=== PATIENT | male | born 1990 | race Caucasian/White ===

== ENCOUNTER 2017-12-17 12:47 | Inpatient (IN) ==
[2017-12-17 13:12] LABS: Basophils % 0.2 % (0.1-2.0); Eosinophils # 0.1 K/mm3 (0.0-0.4); Eosinophils % 0.5 % (0.1-12.0); Hematocrit 45.6 % (42.0-52.0); Hemoglobin 15.4 g/dL (14.1-18.0); Lymphocytes # 1.7 K/mm3 (0.7-4.5); Lymphocytes % 10.7 K/mm3 (10-50); Mean Corpuscular HGB Conc 33.7 g/dL (31.8-35.4); Mean Platelet Volume 7.8 fl (7.4-10.4); Monocytes # 0.7 K/mm3 (0.1-1.0); Neutrophils # 13.6 K/mm3 (1.8-7.8); Neutrophils % 84.6 % (37.0-80.0); Platelet Count 307 K/mm3 (142-424); Red Blood Count 4.96 M/mm3 (4.60-6.20); Red Cell Distribution Width 12.7 % (11.5-17.5)
--- NOTE | 2017-12-17 13:22 | Emergency Department Note ---
ED Disposition Clinical Impression: Acute pancreatitis, Lung nodule < 6cm on CT, Leucocytosis Disposition: Still a Patient Condition on Discharge: Fair Instructions: DI for Acute Abdomen - Critical Care Critical Care Time: No Attestation: On , the high probability of a clinically significant, sudden or life threatening deterioration of the following system(s) required my full and direct attention, intervention and personal management. The time I documented below is in addition to time spent performing reported procedures but includes the following listed in this critical care notation. Medical Decision Making - Eric Inquiry Pt receiving controlled substance: No Eric was queried for this patient: No Vital Signs: 12/17/17 12:52 Temperature 98.1 F Temperature Source Oral Respiratory Rate 22 Blood Pressure [Right Arm] 128/100 Blood Pressure Mean [Right Arm] 109 Blood Pressure Source [Right Arm] Automatic Cuff 02 Sat by Pulse Oximetry 98 Oxygen Delivery Method Room Air - Lab Data Lab Results 12/17/17 12:58: WBC 16.0 H, RBC 4.96, Hgb 15.4, Hct 45.6, MCV 92.0, MCH 31.0, MCHC 33.7, RDW 12.7, Plt Count 307, MPV 7.8, Neut % (Auto) 84.6 H, Lymph % (Auto ) 10.7, [place] % (Auto) 4.0, Eos % (Auto) 0.5, Baso % (Auto) 0.2, Neut # (Auto) 13.6 H, Lymph # (Auto) 1.7, [place] # (Auto) 0.7, Eos # (Auto) 0.1, Baso # (Auto) 0.0, Total Counted 100, Neutrophils % (Manual) 82 H, Band Neutrophils % 1.0, Lymphocytes % (Manual) 14, Monocytes % (Manual) 3, Platelet Estimate Normal, RBC Morphology Normal 12/17/17 12:58: Sodium 141, Potassium 4.1, Chloride 102, Carbon Dioxide 29, Anion Gap 14.1, BUN 19 H, Creatinine 1.16, Estimated Creat Clear 127, Estimated GFR 74, Est GFR ( Amer) 90, Glucose 107 H, Calcium 9.7, Total Bilirubin 0.9, AST 27, ALT 49, Alkaline Phosphatase 80, Total Creatine Kinase 191, CK-MB ( CK-2) 1.7, CK-MB (CK-2) Rel Index 0.9, Troponin I < 0.02, Total Protein 8.4 H, Albumin 4.8, Globulin 3.6 H, Albumin/Globulin Ratio 1.3, Amylase 417 H*, Lipase 4673 H 12/17/17 12:58: Plasma/Serum Alcohol 4 12/17/17 13:30: Lactic Acid 1.4 Result diagrams: 12/17/17 12:58 12/17/17 12:58 Orders (Tests/Meds): ED MEDICATIONS Generic Name Dose Route Start Last Admin Trade Name August PRN Reason Stop Dose Admin Metronidazole 100 mls @ 100 mls/hr 12/17/17 14:15 12/17/17 14:14 Flagyl 500mg/100ml Ivpb IV 12/31/17 14:14 100 mls/hr Q8H RONEY Administration Protocol Levofloxacin/Dextrose 750 mg in 150 mls @ 100 mls/hr 12/17/17 14:15 12/17/17 15:20 Levofloxacin 750mg/150ml Premix IV 12/31/17 14:14 100 mls/hr Q24H RONEY Administration Protocol Morphine Sulfate 2 mg 12/17/17 13:16 12/17/17 13:23 Morphine 2mg/Ml Syringe IV 01/16/18 13:15 2 mg [id number] PRN Administration Severe Pain Discontinued Medications Generic Name Dose Route Start Last Admin Trade Name August PRN Reason Stop Dose Admin Sodium Chloride 500 mls @ 999 mls/hr 12/17/17 13:30 12/17/17 13:23 Sod Chlor 0.9% 1000ml Bag IV 12/17/17 14:00 999 mls/hr .Q31M RONEY Administration Sodium Chloride 1,000 mls @ 999 mls/hr 12/17/17 13:30 12/17/17 15:27 Sod Chlor 0.9% 1000ml Bag IV 12/17/17 14:30 999 mls/hr .Q1H1M RONEY Administration Iopamidol 75 ml 12/17/17 13:55 12/17/17 13:56 [id number]; 75ml Vial IV 12/17/17 13:56 75 ml ONCE ONE Administration Ondansetron HCl 4 mg 12/17/17 13:02 12/17/17 13:03 Zofran 4mg/2ml Vial IV 12/17/17 13:03 4 mg ONCE ONE Administration Sodium Chloride 10 ml 12/17/17 13:55 12/17/17 13:56 Rad-Saline Flush 10ml Syringe IV 12/17/17 13:56 10 ml ONCE ONE Administration ORDERS Category Date Time Status Drug Screen,Urine Stat Lab 12/17/17 15:17 Received Blood Culture Stat Micro 12/17/17 13:30 Received - Radiology Data #1 Image(s): Chest Preliminary Findings: Normal/NAD - CT Data CT Scan: Abdomen, Pelvis Time Received: 15:02 Preliminary Findings: Abnormal Findings Narrative: see report - ECG Data Tracing #1 Normal sinus rhythm 100/min baseline artifact no acute findings. ECG initial impression date: 12/17/17 ECG initial impression time: 13:23 Medical Decision Narrative: The patient required 4 mg of morphine IV for pain control. I called Dr. Jovel the signal operator who advised the patient to be admitted for bowel rest and IV fluids. I spoke with Dr. Diaz was cable television technician for unassigned patients agreed to admit the patient for symptomatic treatment and ultrasound. Abdominal Pain HPI - General Chief Complaint: Abdominal Pain Stated Complaint: abd pain Time Seen by Provider: 12/17/17 13:00 Mode of Arrival: Ambulatory Limitations: No Limitations Description of Symptoms (Recalled from ER Triage Doc. by RN): ONSET OF MID EPIGASTRIC ABD PAIN; RADIATES TO BACK - History of Present Illness HPI narrative: 27 years old white male with no past medical history woke up this morning at 830 with indigestion later on developed pain that progressively gotten worse at 1030 and started vomiting. He started vomiting food later on it became frothy white material x 8 followed by one loose bowel movement. The pain is sharp epigastric radiating to his back severe in character. He denies having hematemesis coffee-ground emesis bleeding per rectum or melanotic stool. He denies having chest pain palpitations shortness of breath. He does not recall any other family members or coworkers with similar symptoms. He drank beer yesterday. He has no history of gallbladder disease but his grandfather had similar symptoms and pancreatitis. MD complaint: abdominal pain Onset (ago): hour(s) (5 hours.) Consistency: constant Location: epigastric Severity: severe Quality: stabbing Radiation: back Migration to: no migration Relieving factors: nothing Exacerbating factors: nothing Associated symptoms: nausea, vomiting, diarrhea - Related Data Allergies Allergy/AdvReac Type Severity Reaction Status Date / Time cefaclor [From [facility]] Allergy Mild Verified 12/17/17 13:02 [facility] History I have reviewed the patient's past medical history: Yes (No significant past medical history. ) - Social History Educational Level: Completed High School Smoking Status: Never smoker Alcohol Intake: never - Psychiatric History Expresses thoughts of harming self/others: None Suicide Plan Description: No Plan ROS Obtained: Yes All systems reviewed & no additional complaints Physical Exam - General General appearance: alert, in no apparent distress - Head Head exam: atraumatic, normocephalic, normal inspection - Eye Eye exam: Present: normal appearance, PERRL, EOMI - ENT ENT exam: Present: normal exam, normal oropharynx, mucous membranes moist, TM's normal bilaterally, normal external ear exam - Neck Neck exam: Present: normal inspection, full ROM, trachea midline. Absent: meningismus, lymphadenopathy - Chest Chest inspection: Present: normal inspection, symmetric chest wall rise. Absent : tenderness - Respiratory Respiratory exam: Present: normal lung sounds bilaterally. Absent: respiratory distress - Cardiovascular Cardiovascular exam: Present: regular rate, normal rhythm. Absent: JVD - Abdominal Exam Abdominal exam: Present: soft, tenderness, normal bowel sounds, other (Moderate epigastric tenderness with no guarding no rigidity no cross or rebound tenderness. ). Absent: guarding, rebound, rigidity - exam: Present: normal inspection, normal testicular lie, circumcised - Extremities Exam Extremities exam: Present: normal inspection, full ROM, normal capillary refill. Absent: calf tenderness - Back Exam Back exam: Present: normal inspection. Absent: tenderness - Neurological Exam Neurological exam: Present: alert, oriented X3, CN II-XII intact, motor sensory deficit, reflexes normal - Psychiatric Psychiatric exam: Present: normal affect, normal mood
[2017-12-17 13:39] LABS: Alanine Aminotransferase 49 U/L (12-78); Albumin Level 4.8 gm/dL (3.4-5.0); Albumin/Globulin Ratio 1.3 (1.1-1.8); Alkaline Phosphatase 80 U/L (46-116); Amylase 417 U/L (25-125); Anion Gap 14.1 mEq/L (5-15); Aspartate Amino Transferase 27 U/L (15-37); Bilirubin,Total 0.9 mg/dL (0.2-1.0); Blood Urea Nitrogen 19 mg/dL (7-18); Calcium 9.7 mg/dL (8.5-10.1); Carbon Dioxide 29 mmol/L (21.0-32.0); Chloride 102 mmol/L (98-107); Creatine Kinase 191 U/L (39-308); Globulin 3.6 gm/dl (1.3-3.2); Glucose 107 mg/dL (74-106); Potassium 4.1 mmoL/L (3.5-5.1); Sodium 141 mmol/L (136-145); Total Protein,Serum 8.4 gm/dL (6.4-8.2)
[2017-12-17 13:45] LABS: Lymphocytes % 14 % (10-50); Monocytes % 3 % (2-9); Neutrophils % 82 % (42-76); RBC Morphology Normal; Total Cells Counted 100
[2017-12-17 13:49] LABS: Lipase 4673 u/L (73-393)
[2017-12-17 15:31] LABS: Amphetamine/Metha Screen,Urine Negative ng/mL (<1000); Barbiturates Screen,Urine Negative ng/mL (<200); Benzodiazepines Screen,Urine Negative ng/mL (200); Cannabinoid Screen,Urine Negative ng/mL (<50); Cocaine Screen,Urine Negative ng/g (<300); Methadone Screen,Urine Negative ng/mL (<300); Opiate Screen,Urine Positive ng/mL (<300); Phencyclidine Screen,Urine Negative ng/mL (<25)
--- NOTE | 2017-12-17 17:21 | History & Physical Report ---
*Admission Date: 12/17/17 *Chief complaint: Abdominal pain *History of present illness: 27-year-old male awoke this morning with what he initially perceived to be indigestion. However a short time later his abdominal pain abruptly increased and persisted with increasing intensity Omma radiating to the back, and associated nausea until he developed repetitive vomiting. It was at this time the patient presented to the emergency department and was found to have symptoms and exam findings consistent with acute pancreatitis. Patient had a single beer yesterday evening at approximately 6 PM. He denies any history of gallbladder disease. [facility] History Medical History: Denies:: Cancer, Diabetes Mellitus Type 1, Diabetes Mellitus Type 2, Internal Pacemaker, MRSA Other Surgeries: No: Pacemaker Amputation: No Fractures: No - *Social History Educational Level: Attended College Smoking Status: Never smoker Alcohol Intake: current Occupational Status: employed Housing: house Household Members: spouse, children - Psychiatric History Expresses thoughts of harming self/others: None Suicide Plan Description: No Plan *Family Hx:: Cancer, Hyperlipidemia, Hypertension Review of Systems - Review of Systems Review of systems:: pertinent systems reviewed and negative unless documented below Meds Home Medications Medication Instructions Recorded Confirmed Type No Known Home Medications [No 12/17/17 12/17/17 History Known Home Medications] Allergies Allergy/AdvReac Type Severity Reaction Status Date / Time cefaclor [From [facility]] Allergy Mild Verified 12/17/17 13:02 Exam Vital signs and Labs for Last 24 Hours: Temp Pulse Resp BP Pulse Ox 98.4 F 100 H 20 144/66 100 12/17/17 16:28 12/17/17 16:28 12/17/17 16:28 12/17/17 16:28 12/17/17 16:28 I & O for Last 24 hours: Intake & Output 12/15/17 12/16/17 12/17/17 12/18/17 11:59 11:59 11:59 11:59 Weight 211 lb 2 oz Narrative: Patient appears to be in moderate amount of pain laying on his left side in the bed in the position. HEENT exam reveals reactive pupils, moist oropharynx. Neck is without lymphadenopathy. Lungs are clear to auscultation. Heart rate is mildly tachycardic. Abdomen is soft with epigastric tenderness to palpation. Bowel sounds are present. He has active range of motion in all of his extremities. H&P: Result - Labs Labs: Laboratory Results - last 24 hr 12/17/17 12:58: WBC 16.0 H, RBC 4.96, Hgb 15.4, Hct 45.6, MCV 92.0, MCH 31.0, MCHC 33.7, RDW 12.7, Plt Count 307, MPV 7.8, Neut % (Auto) 84.6 H, Lymph % (Auto ) 10.7, [place] % (Auto) 4.0, Eos % (Auto) 0.5, Baso % (Auto) 0.2, Neut # (Auto) 13.6 H, Lymph # (Auto) 1.7, [place] # (Auto) 0.7, Eos # (Auto) 0.1, Baso # (Auto) 0.0, Total Counted 100, Neutrophils % (Manual) 82 H, Band Neutrophils % 1.0, Lymphocytes % (Manual) 14, Monocytes % (Manual) 3, Platelet Estimate Normal, RBC Morphology Normal 12/17/17 12:58: Sodium 141, Potassium 4.1, Chloride 102, Carbon Dioxide 29, Anion Gap 14.1, BUN 19 H, Creatinine 1.16, Estimated Creat Clear 127, Estimated GFR 74, Est GFR ( Amer) 90, Glucose 107 H, Calcium 9.7, Total Bilirubin 0.9, AST 27, ALT 49, Alkaline Phosphatase 80, Total Creatine Kinase 191, CK-MB ( CK-2) 1.7, CK-MB (CK-2) Rel Index 0.9, Troponin I < 0.02, Total Protein 8.4 H, Albumin 4.8, Globulin 3.6 H, Albumin/Globulin Ratio 1.3, Amylase 417 H*, Lipase 4673 H 12/17/17 12:58: Plasma/Serum Alcohol 4 12/17/17 13:30: Lactic Acid 1.4 12/17/17 15:17: Urine Opiates Screen Positive H, Ur Barbituates Screen Negative , Ur Phencyclidine Scrn Negative, Ur Amphetamines Screen Negative, U Methamphetamines Scrn Negative, U Benzodiazepines Scrn Negative, Urine Cocaine Screen Negative, U Marijuana (THC) Screen Negative Assessment and Plan (1) Acute pancreatitis Current visit: Yes Status: Acute Category: Medical Code(s): K85.90 - Acute pancreatitis without necrosis or infection, unspecified - Assessment and plan all Dx Assessment and Plan for all problems:: Patient has been admitted for pain control, IV fluids, bowel rest. Ultrasound of the right upper quadrant has been performed and results are pending
[2017-12-18 06:46] LABS: Basophils % 0.1 % (0.1-2.0); Eosinophils % 0.1 % (0.1-12.0); Hematocrit 41.3 % (42.0-52.0); Hemoglobin 14.2 g/dL (14.1-18.0); Lymphocytes # 1.6 K/mm3 (0.7-4.5); Lymphocytes % 11.2 K/mm3 (10-50); Mean Corpuscular HGB Conc 34.3 g/dL (31.8-35.4); Mean Corpuscular Hemoglobin 31.5 pg (27.0-31.2); Mean Corpuscular Volume 91.8 fl (80-94); Mean Platelet Volume 7.8 fl (7.4-10.4); Monocytes # 0.8 K/mm3 (0.1-1.0); Monocytes % 5.5 % (1.7-9.3); Neutrophils # 12.1 K/mm3 (1.8-7.8); Neutrophils % 83.1 % (37.0-80.0); Platelet Count 249 K/mm3 (142-424); Red Cell Distribution Width 12.7 % (11.5-17.5); White Blood Count 14.5 K/mm3 (4.8-10.8)
[2017-12-18 07:00] LABS: Albumin Level 3.6 gm/dL (3.4-5.0); Albumin/Globulin Ratio 1.1 (1.1-1.8); Anion Gap 8.6 mEq/L (5-15); Bilirubin,Total 0.7 mg/dL (0.2-1.0); Chol/HDL Ratio 5.2 (1-3.5); Globulin 3.2 gm/dl (1.3-3.2); Potassium 3.6 mmoL/L (3.5-5.1); Total Protein,Serum 6.8 gm/dL (6.4-8.2)
[2017-12-18 07:11] LABS: Albumin Level 3.6 gm/dL (3.4-5.0); Bilirubin,Direct 0.1 mg/dL (0.0-0.2); Bilirubin,Total 0.7 mg/dL (0.2-1.0); Total Protein,Serum 6.8 gm/dL (6.4-8.2)
[2017-12-18 07:13] LABS: Calcium 8.5 mg/dL (8.5-10.1)
--- NOTE | 2017-12-18 07:15 | Pharmacy Consult Notes ---
[facility] Pharmacy VTE Monitoring - Patient Demographics Admission date: 12/17/17 Report Date: 12/18/17 Time: 07:15 Allergies/Adverse Reactions: Patient Allergies cefaclor [From [facility]] Allergy (Mild, Verified 12/17/17 13:02) Height: 1.78 m Weight: 95.765 kg Patient Problems: Current Active Problems Acute pancreatitis (Acute) Lung nodule < 6cm on CT (Acute) Leucocytosis (Acute) - VTE Risk Labs: VTE Related Lab Results Hgb 14.2 g/dL (14.1-18.0) 12/18/17 06:05 Hct 41.3 % (42.0-52.0) L 12/18/17 06:05 Plt Count 249 K/mm3 (142-424) 12/18/17 06:05 BUN 11 mg/dL (7-18) D 12/18/17 06:05 Creatinine 0.98 mg/dL (0.70-1.30) 12/18/17 06:05 Estimated Creat Clear 151 mL/min (0-300) 12/18/17 06:05 Was VTE Risk Assessment Performed: Yes VTE Score: 1 VTE Risk Level: Very Low Risk - Prophylaxis VTE Prophylaxis Ordered?: Yes Types of VTE Prophylaxis: TEDS Knee High Location of Applied Device: Bilateral Lower Extremeties - VTE Diagnosis Confirmed Treatment or plan recommended: Continue Current Treatment
--- NOTE | 2017-12-18 07:23 | Progress Note ---
Internal Medicine - PN: Subj *Date: 12/18/17 *Time: 07:22 Interval history: Patient feels better this morning. He had some episodes of nausea overnight. Last episode of emesis was around midnight. Pain is controlled with morphine although morphine does cause nausea lasting about a minute after administration. Exam Vital signs and Labs for Last 24 Hours: Temp Pulse Resp BP Pulse Ox 98.5 F 107 H 16 133/90 97 12/18/17 00:00 12/18/17 00:00 12/18/17 00:00 12/18/17 00:00 12/18/17 00:00 Laboratory Results - last 24 hr 12/18/17 06:05: WBC 14.5 H, RBC 4.50 L, Hgb 14.2, Hct 41.3 L, MCV 91.8, MCH 31.5 H, MCHC 34.3, RDW 12.7, Plt Count 249, MPV 7.8, Neut % (Auto) 83.1 H, Lymph % (Auto) 11.2, [place] % (Auto) 5.5, Eos % (Auto) 0.1, Baso % (Auto) 0.1, Neut # (Auto) 12.1 H, Lymph # (Auto) 1.6, [place] # (Auto) 0.8, Eos # (Auto) 0.0, Baso # (Auto) 0.0 12/18/17 06:05: Sodium 140, Potassium 3.6, Chloride 109 H, Carbon Dioxide 26, Anion Gap 8.6, BUN 11 D, Creatinine 0.98, Estimated Creat Clear 151, Estimated GFR 90, Est GFR ( Amer) 109 D, Glucose 122 H, Calcium 8.5 D, Magnesium 1.8, Total Bilirubin 0.7, AST 19 D, ALT 35 D, Alkaline Phosphatase 64, Total Protein 6.8, Albumin 3.6 D, Globulin 3.2, Albumin/Globulin Ratio 1.1, Triglycerides 82, Cholesterol 193, LDL Cholesterol 140 H, VLDL Cholesterol 16, HDL Cholesterol 37, Cholesterol/HDL Ratio 5.2 H 12/18/17 06:05: Total Bilirubin 0.7, Direct Bilirubin 0.1, AST 19, ALT 37, Alkaline Phosphatase 64, Total Protein 6.8, Albumin 3.6 I & O for Last 24 hours: Intake & Output 12/15/17 12/16/17 12/17/17 04/10/18 11:59 11:59 11:59 11:59 Intake Total 1625 / 1625 Output Total 500 / 500 Balance 1125 / 1125 Weight 211 lb 2 oz Narrative: Patient looks like he is markable. Lungs are clear. Heart has a regular rate and rhythm. Abdomen is soft with mild epigastric fullness but no tenderness. Bowel sounds are decreased. Assessment and Plan (1) Acute pancreatitis Current visit: Yes Status: Acute Category: Medical Code(s): K85.90 - Acute pancreatitis without necrosis or infection, unspecified - Assessment and plan all Dx Assessment and Plan for all problems:: Jarad ultrasound today due to unclear pictures yesterday from abdominal gas. Continue current care
--- NOTE | 2017-12-18 20:15 | Discharge Summary ---
General - General Admission date: 12/17/17 Discharge date: 12/19/17 HPI HPI: 27-year-old male awoke this morning with what he initially perceived to be indigestion. However a short time later his abdominal pain abruptly increased and persisted with increasing intensity Omma radiating to the back, and associated nausea until he developed repetitive vomiting. It was at this time the patient presented to the emergency department and was found to have symptoms and exam findings consistent with acute pancreatitis. Patient had a single beer yesterday evening at approximately 6 PM. He denies any history of gallbladder disease. Hospital Course Hospital Course: Patient was admitted and placed on IV morphine, IV fluids and antiemetics and given bowel rest. Patient was kept n.p.o. for 24 hours. Within 24 hours his pain nearly resolved. Patient was started on sips and chips which he tolerated. On the morning of December 19 he was started on clear liquids which was later advanced to full liquids when the patient tolerated this. Once he was tolerating full liquids without nausea or pain he was discharged home Objective Vital signs: Temp Pulse Resp BP Pulse Ox 98.9 F 88 18 130/84 99 12/18/17 15:19 12/18/17 15:19 12/18/17 15:19 12/18/17 15:19 12/18/17 15:19 Results Labs on day of discharge: Labs from last 24 hours 12/18/17 12/18/17 12/18/17 06:05 06:05 06:05 WBC 14.5 H RBC 4.50 L Hgb 14.2 Hct 41.3 L MCV 91.8 MCH 31.5 H MCHC 34.3 RDW 12.7 Plt Count 249 MPV 7.8 Neut % (Auto) 83.1 H Lymph % (Auto) 11.2 [place] % (Auto) 5.5 Eos % (Auto) 0.1 Baso % (Auto) 0.1 Neut # (Auto) 12.1 H Lymph # (Auto) 1.6 [place] # (Auto) 0.8 Eos # (Auto) 0.0 Baso # (Auto) 0.0 Sodium 140 Potassium 3.6 Chloride 109 H Carbon Dioxide 26 Anion Gap 8.6 BUN 11 D Creatinine 0.98 Estimated Creat Clear 151 Estimated GFR 90 Est GFR ( Amer) 109 D Glucose 122 H Calcium 8.5 D Magnesium 1.8 Total Bilirubin 0.7 0.7 Direct Bilirubin 0.1 AST 19 19 D ALT 37 35 D Alkaline Phosphatase 64 64 Total Protein 6.8 6.8 Albumin 3.6 3.6 D Globulin 3.2 Albumin/Globulin Ratio 1.1 Triglycerides 82 Cholesterol 193 LDL Cholesterol 140 H VLDL Cholesterol 16 HDL Cholesterol 37 Cholesterol/HDL Ratio 5.2 H DS: Diagnosis - Discharge Diagnosis (1) Acute pancreatitis Status: Acute Discharge Plan - Patient Discharge Instructions ACTIVITY: Continue current activity DIET: advance to your usual diet Patient Instructions: Fat-Restricted Diet - Follow up Plan Follow up with: Raul Diaz MD [Staff Physician] - Disposition: Home, Self-Fci Medications: Home Medications Medication Instructions Recorded Confirmed Type No Known Home Medications [No 12/17/17 12/17/17 History Known Home Medications] Prescriptions/Medication Reconciliation: No Action No Known Home Medications [No Known Home Medications]
== END 2017-12-19 04:40 | disposition home or self-care (01) ==
LOC: ER 12:47 → 2ND 16:06
PROVIDERS: ADMIT Family Medicine; ATTEND Family Medicine

== ENCOUNTER 2020-12-27 12:12 | Emergency (ER) | payer OTHER, SELFPAY ==
[2020-12-27 12:14] VITALS: BP 146/96; PULSE 87; RESP 18; TEMP 36.8; O2SAT 95; BMI 27.2
[2020-12-27 12:30] VITALS: BMI 27.2
--- NOTE | 2020-12-27 12:32 | [facility].EDGENADL ---
ED Disposition Clinical Impression: Pancreatitis Qualifiers: Chronicity: acute Pancreatitis type: unspecified pancreatitis type Acute pancreatitis complication: unspecified Qualified Code(s): K85.90 - Acute pancreatitis without necrosis or infection, unspecified Disposition: Home, Self-Care Condition on Discharge: Good Instructions: Acute Abdominal Pain Additional Instructions: Take prescribed medication for breakthrough pain only. Do not operate heavy machinery or drink alcohol while taking opioid pain medication. Use nausea medicine as prescribed. Follow a clear liquid diet over the next several days. Please follow-up with your primary care doctor for recheck within 24 to 48 hours. Immediate return if intractable nausea/vomiting, worsening pain, fever/chills, other new concerning symptoms. Prescriptions: Hydrocod/Acet 5/325 mg [Ernul 5/325mg tablet] 1 tab PO Q6HP PRN 3 Days #12 tab PRN Reason: Breakthru Moderate Pain Transmission Status: [facility] to [facility] Ondansetron [Zofran 4mg ODT] 4 mg PO TIDP PRN #12 tab PRN Reason: Vomiting Transmission Status: Pending to [facility] - Critical Care Critical Care Time: No Attestation: On , the high probability of a clinically significant, sudden or life threatening deterioration of the following system(s) required my full and direct attention, intervention and personal management. The time I documented below is in addition to time spent performing reported procedures but includes the following listed in this critical care notation. Medical Decision Making - Medical Records Medical records reviewed: Yes: I reviewed the patient's medical records. - Eric Inquiry Pt receiving controlled substance: Yes Eric was queried for this patient: Yes Reference #:: [id number] Risks and benefits of using a controlled substance: were discussed with pt by me Vital Signs: 12/27/20 12:14 12/27/20 13:00 12/27/20 13:30 Temperature 98.2 F Temperature Source Oral Pulse Rate 86 89 Pulse Rate [Right Radial] 87 Respiratory Rate 18 18 18 Blood Pressure 151/99 H 137/89 Blood Pressure [Right Arm] 146/96 H Blood Pressure Mean 116 105 Blood Pressure Mean [Right Arm] 112 Blood Pressure Source [Right Arm] Automatic Cuff Blood Pressure Position [Right Arm] Sitting 02 Sat by Pulse Oximetry 95 97 98 Oxygen Delivery Method Room Air 12/27/20 14:23 Temperature Temperature Source Pulse Rate 79 Pulse Rate [Right Radial] Respiratory Rate 18 Blood Pressure 135/80 Blood Pressure [Right Arm] Blood Pressure Mean Blood Pressure Mean [Right Arm] Blood Pressure Source [Right Arm] Blood Pressure Position [Right Arm] 02 Sat by Pulse Oximetry 100 Oxygen Delivery Method - Lab Data Lab Results 12/27/20 12:28: WBC 11.7 H, RBC 4.83, Hgb 15.0, Hct 44.4, MCV 91.9, MCH 31.1, MCHC 33.8, RDW 12.8, Plt Count 263, MPV 7.7, Neut % (Auto) 84.6 H, Lymph % (Auto) 10.4, [place] % (Auto) 4.2, Eos % (Auto) 0.6, Baso % (Auto) 0.3, Neut # (Auto) 9.9 H, Lymph # (Auto) 1.2, [place] # (Auto) 0.5, Eos # (Auto) 0.1, Baso # (Auto) 0.0 12/27/20 12:28: Sodium 140, Potassium 4.2, Chloride 107, Carbon Dioxide 26, Anion Gap 11.2, BUN 10, Creatinine 1.00, Estimated Creat Clear 129, Estimated GFR 87, Est GFR ( Amer) 105, Glucose 117 H, Calcium 9.7, Total Bilirubin 0.9, AST 35, ALT 33, Alkaline Phosphatase 82, Total Protein 7.8, Albumin 4.9, Globulin 2.9, Albumin/Globulin Ratio 1.7, Lipase 9754 H Result diagrams: 12/27/20 12:28 12/27/20 12:28 Orders (Tests/Meds): ED MEDICATIONS Discontinued Medications Generic Name Dose Route Start Last Admin Trade Name Freq PRN Reason Stop Dose Admin Hydrocodone Bitart/Acetaminophen 1 tab 12/27/20 14:05 12/27/20 14:18 Apap/Hydrocodone 325mg/7.5mg Tab PO 12/27/20 14:06 1 tab ONCE ONE Administration Sodium Chloride 1,000 mls @ 999 mls/hr 12/27/20 12:45 12/27/20 12:35 Sod Chlor 0.9% 1000ml Bag IV 12/27/20 13:
[2020-12-27 12:41] LABS: Basophils % 0.3 % (0.1-2.0); Chloride 107 mmol/L (98-107); Eosinophils # 0.1 K/mm3 (0.0-0.4); Eosinophils % 0.6 % (0.1-12.0); Hematocrit 44.4 % (42.0-52.0); Lymphocytes # 1.2 K/mm3 (0.7-4.5); Lymphocytes % 10.4 % (10-50); Mean Corpuscular HGB Conc 33.8 g/dL (31.8-35.4); Mean Corpuscular Hemoglobin 31.1 pg (27.0-31.2); Mean Corpuscular Volume 91.9 fl (80-94); Mean Platelet Volume 7.7 fl (7.4-10.4); Monocytes # 0.5 K/mm3 (0.1-1.0); Monocytes % 4.2 % (1.7-9.3); Neutrophils # 9.9 K/mm3 (1.8-7.8); Neutrophils % 84.6 % (37.0-80.0); Platelet Count 263 K/mm3 (142-424); Potassium 4.2 mmoL/L (3.5-5.1); Red Blood Count 4.83 M/mm3 (4.60-6.20); Red Cell Distribution Width 12.8 % (11.5-17.5); Sodium 140 mmol/L (136-145); White Blood Count 11.7 K/mm3 (4.8-10.8)
[2020-12-27 12:43] LABS: Alanine Aminotransferase 33 U/L (12-78); Alkaline Phosphatase 82 U/L (38-126); Anion Gap 11.2 mEq/L (5-15); Aspartate Amino Transferase 35 U/L (17-59); Bilirubin,Total 0.9 mg/dl (0.2-1.3); Blood Urea Nitrogen 10 mg/dl (9-20); Carbon Dioxide 26 mmol/L (22.0-30.0); Creatinine Clearance Estimated 129 mL/min (50-200); Estimated Glomerular Filt Rate 87 ml/min (>60); GFR (African American) 105 ML/MIN (>60)
[2020-12-27 12:44] LABS: Albumin Level 4.9 g/dl (3.5-5.0); Albumin/Globulin Ratio 1.7 (1.1-1.8); Calcium 9.7 mg/dl (8.4-10.2); Globulin 2.9 g/dL (1.3-3.2); Glucose 117 mg/dl (74-100); Total Protein,Serum 7.8 g/dl (6.3-8.2)
[2020-12-27 13:00] VITALS: BP 151/99; PULSE 86; RESP 18; O2SAT 97
[2020-12-27 13:30] VITALS: BP 137/89; PULSE 89; RESP 18; O2SAT 98
[2020-12-27 13:42] LABS: Lipase 9754 U/L (23-300)
[2020-12-27 14:23] VITALS: BP 135/80; PULSE 79; RESP 18; O2SAT 100
[2020-12-27 15:47] VITALS: BP 152/95; PULSE 90; RESP 18; TEMP 36.8; O2SAT 100
== END 2020-12-27 15:47 | disposition home or self-care (01) ==
PROVIDERS: Emergency Provider Emergency Medicine
DX: K85.90 Acute pancreatitis without necrosis or infection, unspecified (principal)
CPT/HCPCS: 80053; 83690; 85025; 96365; 96375; 99282; J2405

== ENCOUNTER 2021-04-25 09:57 | Inpatient (IN) | payer SELFPAY ==
[2021-04-25] VITALS (10 sets, daily range): BP systolic 152–169; BP diastolic 88–113; PULSE 78–107; RESP 16–24; TEMP 36.4–37.2; O2SAT 91–100; BMI 27.2; BMI 28.1
[2021-04-25 10:21] LABS: Basophils % 0.3 % (0.1-2.0); Eosinophils # 0.1 K/mm3 (0.0-0.4); Eosinophils % 0.3 % (0.1-12.0); Hematocrit 44.1 % (42.0-52.0); Hemoglobin 15.2 g/dL (14.1-18.0); Lymphocytes # 1.7 K/mm3 (0.7-4.5); Lymphocytes % 10.9 % (10-50); Mean Corpuscular HGB Conc 34.4 g/dL (31.8-35.4); Mean Corpuscular Hemoglobin 31.2 pg (27.0-31.2); Mean Corpuscular Volume 90.7 fl (80-94); Mean Platelet Volume 7.7 fl (7.4-10.4); Monocytes # 0.7 K/mm3 (0.1-1.0); Monocytes % 4.2 % (1.7-9.3); Neutrophils # 13.1 K/mm3 (1.8-7.8); Neutrophils % 84.3 % (37.0-80.0); Platelet Count 301 K/mm3 (142-424); Red Blood Count 4.86 M/mm3 (4.60-6.20); Red Cell Distribution Width 13.7 % (11.5-17.5); White Blood Count 15.5 K/mm3 (4.8-10.8)
[2021-04-25 10:24] LABS: Chloride 107 mmol/L (98-107); MANUAL DIFFERENTIAL MANUAL DIFFERENTIAL (MANUAL DIFF); Potassium 4.4 mmoL/L (3.5-5.1); Sodium 143 mmol/L (136-145)
[2021-04-25 10:27] LABS: Alanine Aminotransferase 38 U/L (12-78); Albumin Level 4.8 g/dl (3.5-5.0); Albumin/Globulin Ratio 1.6 (1.1-1.8); Alkaline Phosphatase 74 U/L (38-126); Anion Gap 12.4 mEq/L (5-15); Aspartate Amino Transferase 39 U/L (17-59); Bilirubin,Total 0.8 mg/dl (0.2-1.3); Blood Urea Nitrogen 10 mg/dl (9-20); Calcium 9.3 mg/dl (8.4-10.2); Carbon Dioxide 28 mmol/L (22.0-30.0); Creatinine Clearance Estimated 129 mL/min (50-200); Estimated Glomerular Filt Rate 87 ml/min (>60); GFR (African American) 105 ML/MIN (>60); Glucose 114 mg/dl (74-100); Total Protein,Serum 7.8 g/dl (6.3-8.2)
[2021-04-25 10:32] LABS: Lymphocytes % 13 % (10-50); Monocytes % 6 % (2-9); Neutrophils % 81 % (42-76); Platelet Estimate Normal; Total Cells Counted 100
--- NOTE | 2021-04-25 10:32 | CT_ITS ---
PROCEDURE: CT ABDOMEN PELVIS W CON CLINICAL INDICATION: pain, vomiting Mid abdominal pain with nausea and vomiting COMPARISON: CT ABDPELW CT abdomen pelvis w con from 12/17/2017 TECHNIQUE: IV Contrast: 75ML Isovue 370 Oral Contrast None Axial images obtained with sagittal and coronal reformats. All CT scans at the facility use one or more dose reduction, viz: automated exposure control, ma/kV adjustment per patient size (including targeted exams where dose is matched to indication, i.e. head), or iterative reconstruction technique. FINDINGS: LOWER THORAX: Stable nodules in the lung bases. 6 mm nodules present in the lingula not previously imaged. ABDOMEN & PELVIS: The liver, spleen, adrenal glands, gallbladder, and kidneys have an unremarkable appearance. There is mild diffuse stranding of the peripancreatic fat with edema of the pancreas. No obvious pancreatic necrosis. There is mild thickening of the left anterior pararenal fascia suggesting a small amount of fluid. Small peripheral area of decreased density is noted along the right lateral aspect of the pancreatic head. This is slightly more prominent compared to the previous study may represent edematous change within some peripancreatic invaginated fat as opposed to pancreatic necrosis. Follow-up suggested. No evidence of appendicitis. No intestinal obstruction or free air. There is mild thickening versus nondistention of the transverse colon descending colon and sigmoid colon. No evidence of diverticulitis. There are few small mesenteric lymph nodes. No free air. There is a small umbilical hernia containing fat. No pelvic mass or abnormal pelvic fluid collection. No acute bony finding. IMPRESSION: Findings are compatible with acute pancreatitis with a small amount of fluid in the anterior pararenal fascia is. No definite pancreatic necrosis apparent. Low-density changes along the lateral aspect of the pancreatic head as described above for which follow-up is suggested. Dictated by: Mickey Avila MD 04/25/2021 12:08 Mickey Avila MD in [place] 04/25/2021 12:08
--- NOTE | 2021-04-25 10:33 | HMH.EDABDPAI ---
ED Disposition Clinical Impression: Acute pancreatitis Qualifiers: Pancreatitis type: alcohol induced Acute pancreatitis complication: no infection or necrosis Qualified Code(s): K85.20 - Alcohol induced acute pancreatitis without necrosis or infection Disposition: Admitted As Inpatient Condition on Discharge: Good Instructions: DI for Acute Abdominal Pain Referrals: Provider,Referral, [Primary Care Provider] - - Critical Care Critical Care Time: No Attestation: On , the high probability of a clinically significant, sudden or life threatening deterioration of the following system(s) required my full and direct attention, intervention and personal management. The time I documented below is in addition to time spent performing reported procedures but includes the following listed in this critical care notation. Medical Decision Making - Medical Records Medical records reviewed: Yes: I reviewed the patient's medical records. - Eric Inquiry Pt receiving controlled substance: Yes Eric was queried for this patient: Yes Reference #:: [id number] Risks and benefits of using a controlled substance: were discussed with pt by me Vital Signs: 04/25/21 09:58 04/25/21 10:30 Temperature 97.5 F L Temperature Source Oral Pulse Rate 95 H Pulse Rate [Left] 78 Respiratory Rate 24 Blood Pressure 154/102 H Blood Pressure [Right Arm] 161/106 H Blood Pressure Mean [Right Arm] 124 Blood Pressure Source [Right Arm] Automatic Cuff 02 Sat by Pulse Oximetry 100 100 Oxygen Delivery Method Room Air - Lab Data Lab Results 04/25/21 10:09: WBC 15.5 H, RBC 4.86, Hgb 15.2, Hct 44.1, MCV 90.7, MCH 31.2, MCHC 34.4, RDW 13.7, Plt Count 301, MPV 7.7, Neut % (Auto) 84.3 H, Lymph % (Auto) 10.9, [place] % (Auto) 4.2, Eos % (Auto) 0.3, Baso % (Auto) 0.3, Neut # (Auto) 13.1 H, Lymph # (Auto) 1.7, [place] # (Auto) 0.7, Eos # (Auto) 0.1, Baso # (Auto) 0.0, Total Counted 100, Neutrophils % (Manual) 81 H, Lymphocytes % (Manual) 13, Monocytes % (Manual) 6, Platelet Estimate Normal 04/25/21 10:09: Sodium 143, Potassium 4.4, Chloride 107, Carbon Dioxide 28, Anion Gap 12.4, BUN 10, Creatinine 1.00, Estimated Creat Clear 129, Estimated GFR 87, Est GFR ( Amer) 105, Glucose 114 H, Calcium 9.3, Total Bilirubin 0.8, AST 39, ALT 38, Alkaline Phosphatase 74, Total Protein 7.8, Albumin 4.8, Globulin 3.0, Albumin/Globulin Ratio 1.6, Lipase 4955 H Result diagrams: 04/25/21 10:09 04/25/21 10:09 Orders (Tests/Meds): ED MEDICATIONS Discontinued Medications Generic Name Dose Route Start Last Admin Trade Name Freq PRN Reason Stop Dose Admin Sodium Chloride 1,000 mls @ 999 mls/hr 04/25/21 10:15 04/25/21 10:20 Sod Chlor 0.9% 1000ml Bag IV 04/25/21 11:15 999 mls/hr .Q1H1M RONEY Administration Iopamidol 75 ml 04/25/21 11:21 04/25/21 11:21 Iopamidol-370 (76%);100ml Bottle IV 04/25/21 11:22 75 ml ONCE ONE Administration Ketorolac Tromethamine 30 mg 04/25/21 10:15 04/25/21 10:20 Ketorolac 30mg/Ml Vial IV 04/25/21 10:16 30 mg ONCE ONE Administration Morphine Sulfate 4 mg 04/25/21 10:15 04/25/21 10:20 Morphine 4mg/Ml Syringe IV 04/25/21 10:16 4 mg ONCE ONE Administration Ondansetron HCl 4 mg 04/25/21 10:15 04/25/21 10:25 Ondansetron 4mg/2ml Vial IV 04/25/21 10:16 4 mg ONCE ONE Administration Promethazine HCl 25 mg 04/25/21 10:32 04/25/21 10:39 Promethazine Hcl 25mg/Ml 1ml Vial IV 04/25/21 10:33 25 mg ONCE ONE Administration Sodium Chloride 25 ml 04/25/21 10:32 04/25/21 10:39 Sodium Chloride 0.9% 25ml Bag IV 04/25/21 10:33 25 ml ONCE ONE Administration Sodium Chloride 10 ml 04/25/21 11:21 04/25/21 11:21 Sodium Chloride 0.9% 10ml Syr (Rad Only) IV 04/25/21 11:22 10 ml ONCE ONE Administration ORDERS Category Date Time Status Rapid PCR Covid and Flu A/B Stat Lab 04/25/21 12:40 Ordered Urinalysis and Microscopic Stat Lab 04/25/21 10:15 Ordered -
[2021-04-25 11:22] LABS: Lipase 4955 U/L (23-300)
--- NOTE | 2021-04-25 12:45 | PC.NURSE ---
Dr Levi frank.
[2021-04-25 13:42] LABS: Coronavirus 19, PCR Not Detected (NotDetected); Influenza A, PCR Not Detected (NotDetected); Influenza B, PCR Not Detected (NotDetected)
--- NOTE | 2021-04-25 13:54 | HMH.PHAVTE ---
[facility] Pharmacy VTE Monitoring - Patient Demographics Admission date: 04/25/21 Report Date: 04/25/21 Time: 13:54 Allergies/Adverse Reactions: Patient Allergies cefaclor [From [facility]] Allergy (Mild, Verified 12/17/17 13:02) Height: 1.78 m Weight: 86.183 kg Patient Problems: Current Active Problems Acute pancreatitis (Acute) - VTE Risk Labs: VTE Related Lab Results Hgb 15.2 g/dL (14.1-18.0) 04/25/21 10:09 Hct 44.1 % (42.0-52.0) 04/25/21 10:09 Plt Count 301 K/mm3 (142-424) 04/25/21 10:09 BUN 10 mg/dl (9-20) 04/25/21 10:09 Creatinine 1.00 mg/dl (0.66-1.25) 04/25/21 10:09 Estimated Creat Clear 129 mL/min (50-200) 04/25/21 10:09 - Prophylaxis VTE Prophylaxis Ordered?: Yes Types of VTE Prophylaxis: TEDS Knee High, Pharmacological Location of Applied Device: Bilateral Lower Extremeties Pharmacologic Type: Heparin
--- NOTE | 2021-04-25 14:07 | PC.NURSE ---
REPORT CALLED TO FLOOR
--- NOTE | 2021-04-25 15:29 | HMH.HP ---
*Admission Date: 04/25/21 *History of present illness: Mr. Allred is a 30-year-old male patient with a history of previous pancreatitis who presented to the emergency room with acute abdominal pain radiating into the back associated with nausea and frequent vomiting. He states he went out for dinner last night and did have a couple drinks which he feels precipitated this episode. He had a similar episode about 6 months ago with pancreatitis hospitalization. Denies hematemesis or stool issues. Patient does not have a family physician 04/25/21 10:09: WBC 15.5 H, RBC 4.86, Hgb 15.2, Hct 44.1, MCV 90.7, MCH 31.2, MCHC 34.4, RDW 13.7, Plt Count 301, MPV 7.7, Neut % (Auto) 84.3 H, Lymph % (Auto) 10.9, [place] % (Auto) 4.2, Eos % (Auto) 0.3, Baso % (Auto) 0.3, Neut # (Auto) 13.1 H, Lymph # (Auto) 1.7, [place] # (Auto) 0.7, Eos # (Auto) 0.1, Baso # (Auto) 0.0, Total Counted 100, Neutrophils % (Manual) 81 H, Lymphocytes % (Manual) 13, Monocytes % (Manual) 6, Platelet Estimate Normal 04/25/21 10:09: Sodium 143, Potassium 4.4, Chloride 107, Carbon Dioxide 28, Anion Gap 12.4, BUN 10, Creatinine 1.00, Estimated Creat Clear 129, Estimated GFR 87, Est GFR ( Amer) 105, Glucose 114 H, Calcium 9.3, Total Bilirubin 0.8, AST 39, ALT 38, Alkaline Phosphatase 74, Total Protein 7.8, Albumin 4.8, Globulin 3.0, Albumin/Globulin Ratio 1.6, Lipase [address] of Abdomen/pelvis revealed the following: IMPRESSION: Findings are compatible with acute pancreatitis with a small amount of fluid in the anterior pararenal fascia is. No definite pancreatic necrosis apparent. Low-density changes along the lateral aspect of the pancreatic head as described above for which follow-up is suggested. Emergency room revealed that he was afebrile and hypertensive. He received a liter of IV fluids was given Toradol, morphine, Zofran, Phenergan IV.. Patient and his left side. He does appear uncomfortable. [facility] History Medical History: Denies:: Asthma, Atherosclerotic Heart Disease, Cancer, Chronic Obstructive Pulmonary Disease (COPD), Coronary Artery Disease, Diabetes Mellitus Type 1, Diabetes Mellitus Type 2, Internal Pacemaker, MRSA *Have you ever received a pneumonia vaccine?: No *Have you received a flu vaccine this season?: No Other Surgeries: Yes: No Previous Surgery. No: Pacemaker Amputation: No Fractures: No - *Social History Smoking Status: Never smoker Alcohol Intake: current Alcohol Intake Frequency:: a few times a month *Occupational Status:: employed Housing: house Household Members: spouse *Travel in the last 8 weeks: None Family Hx:: Coronary Artery Disease Review of Systems - Constitutional Denies fever(s) - Eyes Denies change in vision - ENT Denies ear pain, Denies post nasal drip, Denies sore throat - *Cardiovascular Denies chest pain, Denies shortness of breath - *Respiratory Denies chest congestion, Denies cough, Denies shortness of breath - *Gastrointestinal Reports abdominal pain, Reports nausea, Reports vomiting, Denies change in bowel habits, Denies change in stools, Denies heartburn, Denies bright, red blood in stools, Denies black, tarry stools - *Genitourinary Denies difficulty urinating - *Musculoskeletal Denies abnormal walking, Denies joint pain - *Neurologic Denies abnormal walking, Denies abnormal speech, Denies headache(s) Meds Home Medications Medication Instructions Recorded Confirmed Type No Known Home Medications 04/25/21 04/25/21 History Allergies Allergy/AdvReac Type Severity Reaction Status Date / Time cefaclor [From [facility]] Allergy Mild Verified 12/17/17 13:02 Exam Vital signs and Labs for Last 24 Hours: Temp Pulse Resp BP Pulse Ox 98.9 F 105 H 20 153/95 H 97 04/25/21 14:43 04/25/21 14:43 04/25/21 14:43 04/25/21 14:43 04/25/21 14:28 Laboratory Results - last 24 hr 04/25/21 10:09: WBC 15.5 H, RBC 4.86, Hgb 15.2, Hct 44.1, MCV 90.7, MCH 31.2, MCHC 34.4, RDW 13.7, Plt Coun
--- NOTE | 2021-04-26 00:37 | PC.NURSE ---
Pt. has c/o pain in abd x2; tx with morphine, effectiveness reported. Distended abd. Denies n/v this shift; no c/o dizziness or soa.
[2021-04-26 04:00] VITALS: BP 166/102; PULSE 83; RESP 16; TEMP 36.8; O2SAT 97
[2021-04-26 05:04] LABS: Microscopic, Urine URINE MICROSCOPIC (MICROSCOPIC)
[2021-04-26 05:14] LABS: Bilirubin,Urine Negative (Negative); Blood, Urine Negative (Negative); Color,Urine YELLOW (Yellow); Glucose,Urine (UA) Negative (Negative); Ketones,Urine Negative (Negative); Leukocyte Esterase,Urine Negative (Negative); Nitrate,Urine Negative (Negative); Protein,Urine TRACE (Negative); Specific Gravity, Urine >= 1.030 (1.005-1.030); Urobilinogen,Urine 0.2 EU/dl (0.2)
[2021-04-26 05:15] LABS: Appearance,Urine Turbid (Clear)
[2021-04-26 05:20] VITALS: BMI 28.3
[2021-04-26 05:27] LABS: Amorphous Sediment,Urine 1+ /lpf; Bacteria,Urine 3+ /lpf; WBC,Urine Occasional #/hpf (0-3)
[2021-04-26 06:51] LABS: Basophils # 0.1 K/mm3 (0-0.2); Basophils % 0.5 % (0.1-2.0); Eosinophils # 0.1 K/mm3 (0.0-0.4); Eosinophils % 0.3 % (0.1-12.0); Hematocrit 49.8 % (42.0-52.0); Hemoglobin 16.4 g/dL (14.1-18.0); Lymphocytes # 0.8 K/mm3 (0.7-4.5); Lymphocytes % 4.4 % (10-50); Mean Corpuscular HGB Conc 32.9 g/dL (31.8-35.4); Mean Corpuscular Hemoglobin 30.7 pg (27.0-31.2); Mean Corpuscular Volume 93.2 fl (80-94); Mean Platelet Volume 7.7 fl (7.4-10.4); Monocytes # 0.7 K/mm3 (0.1-1.0); Monocytes % 3.7 % (1.7-9.3); Neutrophils # 16.3 K/mm3 (1.8-7.8); Neutrophils % 91.1 % (37.0-80.0); Platelet Count 219 K/mm3 (142-424); Red Blood Count 5.34 M/mm3 (4.60-6.20); Red Cell Distribution Width 13.7 % (11.5-17.5); White Blood Count 17.9 K/mm3 (4.8-10.8)
[2021-04-26 06:53] LABS: Chloride 112 mmol/L (98-107); Potassium 4.3 mmoL/L (3.5-5.1); Sodium 143 mmol/L (136-145)
[2021-04-26 06:54] LABS: Amylase 1098 U/L (30-110); MANUAL DIFFERENTIAL MANUAL DIFFERENTIAL (MANUAL DIFF)
[2021-04-26 06:55] LABS: Blood Urea Nitrogen 12 mg/dl (9-20); Creatinine Clearance Estimated 169 mL/min (50-200); Estimated Glomerular Filt Rate 112 ml/min (>60); GFR (African American) 136 ML/MIN (>60)
[2021-04-26 06:56] LABS: Alanine Aminotransferase 28 U/L (12-78); Albumin Level 3.8 g/dl (3.5-5.0); Albumin/Globulin Ratio 1.5 (1.1-1.8); Alkaline Phosphatase 72 U/L (38-126); Anion Gap 10.3 mEq/L (5-15); Aspartate Amino Transferase 40 U/L (17-59); Bilirubin,Total 1.3 mg/dl (0.2-1.3); Calcium 8.5 mg/dl (8.4-10.2); Carbon Dioxide 25 mmol/L (22.0-30.0); Globulin 2.6 g/dL (1.3-3.2); Glucose 131 mg/dl (74-100); Total Protein,Serum 6.4 g/dl (6.3-8.2)
[2021-04-26 07:51] VITALS: BP 157/85; PULSE 97; RESP 20; TEMP 36.9; O2SAT 96
[2021-04-26 07:53] LABS: Lipase 7611 U/L (23-300)
[2021-04-26 08:13] LABS: Lymphocytes % 2 % (10-50); Monocytes % 1 % (2-9); Neutrophils % 97 % (42-76); Platelet Estimate Normal; Total Cells Counted 100
--- NOTE | 2021-04-26 08:55 | HMH.ACPN2 ---
Internal Medicine - PN: Subj *Date: 04/26/21 *Time: 08:55 Interval history: Patient is more comfortable today. He describes more of an abdominal soreness. He is not nauseated. He would like to try clear liquids. He did sleep some during the nig CBC this morning shows a white count of 17,900 with hemoglobin of 16.4 and hematocrit of 49.8. Blood chemistries show normal potassium and sodium and renal function. Amylase is 1098 with a lipase of 7611. Exam Vital signs and Labs for Last 24 Hours: Temp Pulse Resp BP Pulse Ox 98.5 F 97 H 20 157/85 H 96 04/26/21 07:51 04/26/21 07:51 04/26/21 07:51 04/26/21 07:51 04/26/21 07:51 Laboratory Results - last 24 hr 04/25/21 10:09: WBC 15.5 H, RBC 4.86, Hgb 15.2, Hct 44.1, MCV 90.7, MCH 31.2, MCHC 34.4, RDW 13.7, Plt Count 301, MPV 7.7, Neut % (Auto) 84.3 H, Lymph % (Auto) 10.9, [place] % (Auto) 4.2, Eos % (Auto) 0.3, Baso % (Auto) 0.3, Neut # (Auto) 13.1 H, Lymph # (Auto) 1.7, [place] # (Auto) 0.7, Eos # (Auto) 0.1, Baso # (Auto) 0.0, Total Counted 100, Neutrophils % (Manual) 81 H, Lymphocytes % (Manual) 13, Monocytes % (Manual) 6, Platelet Estimate Normal 04/25/21 10:09: Sodium 143, Potassium 4.4, Chloride 107, Carbon Dioxide 28, Anion Gap 12.4, BUN 10, Creatinine 1.00, Estimated Creat Clear 129, Estimated GFR 87, Est GFR ( Amer) 105, Glucose 114 H, Calcium 9.3, Total Bilirubin 0.8, AST 39, ALT 38, Alkaline Phosphatase 74, Total Protein 7.8, Albumin 4.8, Globulin 3.0, Albumin/Globulin Ratio 1.6, Lipase 4955 H 04/25/21 13:30: SARS-CoV-2 (PCR) Not detected, Influenza A Untype (PCR) Not detected, Influenza Type B (PCR) Not detected 04/26/21 04:15: Urine Color Yellow, Urine Appearance Turbid, Urine pH 6.0, Ur Specific [place] >= 1.030, Urine Protein Trace, Urine Glucose (UA) Negative, Urine Ketones Negative, Urine Blood Negative, Urine Nitrate Negative, Urine Bilirubin Negative, Urine Urobilinogen 0.2, Ur Leukocyte Esterase Negative, Urine WBC Occasional, Amorphous Sediment 1+, Urine Bacteria 3+ 04/26/21 06:32: Amylase 1098 H*, Lipase 7611 H 04/26/21 06:32: WBC 17.9 H, RBC 5.34, Hgb 16.4, Hct 49.8, MCV 93.2, MCH 30.7, MCHC 32.9, RDW 13.7, Plt Count 219 D, MPV 7.7, Neut % (Auto) 91.1 H, Lymph % (Auto) 4.4 L, [place] % (Auto) 3.7, Eos % (Auto) 0.3, Baso % (Auto) 0.5, Neut # (Auto) 16.3 H, Lymph # (Auto) 0.8, [place] # (Auto) 0.7, Eos # (Auto) 0.1, Baso # (Auto) 0.1, Total Counted 100, Neutrophils % (Manual) 97 H, Lymphocytes % (Manual) 2 L, Monocytes % (Manual) 1 L, Platelet Estimate Normal 04/26/21 06:32: Sodium 143, Potassium 4.3, Chloride 112 H, Carbon Dioxide 25, Anion Gap 10.3, BUN 12, Creatinine 0.80, Estimated Creat Clear 169, Estimated GFR 112, Est GFR ( Amer) 136 D, Glucose 131 H, Calcium 8.5, Total Bilirubin 1.3, AST 40, ALT 28 D, Alkaline Phosphatase 72, Total Protein 6.4, Albumin 3.8 D, Globulin 2.6, Albumin/Globulin Ratio 1.5 I & O for Last 24 hours: Intake & Output 04/23/21 04/24/21 04/25/21 04/26/21 11:59 11:59 11:59 11:59 Intake Total 451 / 451 Output Total 350 / 350 Balance 101 / 101 Weight 190 lb 198 lb 5 oz - Constitutional no acute distress Comments: Awake and alert and appears comfortable - *Routine Respiratory Exam Present: CTA bilaterally (Anteriorly and posteriorly. ) - *Routine Cardiovascular Exam Present: RRR (90's) - *Routine Abdominal Exam Present: soft, normoactive bowel sounds, tenderness (Epigastrium) - *Routine Extremities Exam Present: pulses intact. Absent: edema, calf tenderness - *Routine Neurological Exam Present: alert, oriented X3 Assessment and Plan (1) Acute pancreatitis Status: Acute Qualifiers: Pancreatitis type: alcohol induced Acute pancreatitis complication: no infection or necrosis Qualified Code(s): K85.20 - Alcohol induced acute pancreatitis without necrosis or infection Category: Medical Code(s): K85.90 - Acute pancreatitis without necrosis or infection, unspecified (2) Nausea and
[2021-04-26 09:25] LABS: Chol/HDL Ratio 4.7 (1-3.5); Cholesterol 178 mg/dl (140-200); HDL Cholesterol 38 mg/dl (40-60); Triglycerides 208 mg/dl (30-150); VLDL Cholesterol 42 mg/dL (0-40)
[2021-04-26 09:36] LABS: Direct LDL Cholesterol 105.42 mg/dL (100-129)
[2021-04-26 15:24] VITALS: BP 179/89; PULSE 113; RESP 24; TEMP 37.2; O2SAT 96
--- NOTE | 2021-04-26 17:14 | PC.NURSE ---
1640 RN reassessment completed at this time. Pt has rested in intervals this shift, reports improvement in condition. Pain well controlled with PRN morphine. Pt c/o discomfort in abdominal muscles. Warm blanket applied to abdomen several times throughout the shift with improvement in discomfort. No c/o nausea this shift. Pt has tolerated clear liquid diet well, does continue to report decreased appetite. Abd soft and mildly tender with BS hypoactive. Lung sounds CTA. IV infusing without difficulty. Bed locked and in lowest position with side rails up x2. Pt is talking with visitor at bedside. Will continue to monitor.
[2021-04-26 17:15] VITALS: BP 174/105; PULSE 119
[2021-04-26 20:00] VITALS: BP 161/99; PULSE 111; RESP 18; TEMP 37.4; O2SAT 95
[2021-04-27] VITALS: BP 189/101; PULSE 110; RESP 18; TEMP 36.9; O2SAT 94
[2021-04-27 04:00] VITALS: BMI 29.7
--- NOTE | 2021-04-27 04:26 | PC.NURSE ---
Pt A&O. Has c/o 8/10 pain in his abd, pt abd is flat soft and tender. Morphine given per mar with desired effects. On room air. Pt independent in room. IV patent, NS @ 150. VSS, call light in reach, no concerns at this time.
[2021-04-27 06:37] LABS: Basophils % 0.2 % (0.1-2.0); Hematocrit 42.8 % (42.0-52.0); Lymphocytes % 5.1 % (10-50); Mean Corpuscular HGB Conc 34.2 g/dL (31.8-35.4); Mean Corpuscular Hemoglobin 31.3 pg (27.0-31.2); Mean Corpuscular Volume 91.5 fl (80-94); Mean Platelet Volume 8.8 fl (7.4-10.4); Monocytes # 0.8 K/mm3 (0.1-1.0); Monocytes % 4.1 % (1.7-9.3); Neutrophils # 17.2 K/mm3 (1.8-7.8); Neutrophils % 90.6 % (37.0-80.0); Platelet Count 186 K/mm3 (142-424); Red Blood Count 4.68 M/mm3 (4.60-6.20); Red Cell Distribution Width 13.9 % (11.5-17.5)
[2021-04-27 06:45] LABS: Amylase 552 U/L (30-110)
[2021-04-27 06:49] LABS: MANUAL DIFFERENTIAL MANUAL DIFFERENTIAL (MANUAL DIFF)
[2021-04-27 06:50] LABS: Hemoglobin 14.7 g/dL (14.1-18.0)
[2021-04-27 06:56] LABS: Lipase 2485 U/L (23-300)
[2021-04-27 07:53] LABS: Lymphocytes % 8 % (10-50); Monocytes % 3 % (2-9); Neutrophils % 89 % (42-76); Platelet Estimate Normal; RBC Morphology Normal; Total Cells Counted 100
[2021-04-27 08:00] VITALS: BP 181/96; PULSE 100; RESP 18; TEMP 36.7; O2SAT 92
--- NOTE | 2021-04-27 08:31 | HMH.ACPN2 ---
Internal Medicine - PN: Subj *Date: 04/27/21 *Time: 08:31 Interval history: Patient states he is feeling about the same today. His whole abdomen is sore. He denies any vomiting. He has been tolerating clear liquids. He was able to sleep off and on last night. Exam Vital signs and Labs for Last 24 Hours: Temp Pulse Resp BP Pulse Ox 98.0 F 100 H 18 181/96 H 92 L 04/27/21 08:00 04/27/21 08:00 04/27/21 08:00 04/27/21 08:00 04/27/21 08:00 Laboratory Results - last 24 hr 04/26/21 06:32: Triglycerides 208 H, Cholesterol 178, LDL Cholesterol Direct 105.42, VLDL Cholesterol 42 H, HDL Cholesterol 38 L, Cholesterol/HDL Ratio 4.7 H 04/27/21 05:08: Amylase 552 H* D, Lipase 2485 H 04/27/21 05:08: WBC 19.0 H, RBC 4.68, Hgb 14.7 D, Hct 42.8, MCV 91.5, MCH 31.3 H, MCHC 34.2, RDW 13.9, Plt Count 186, MPV 8.8, Neut % (Auto) 90.6 H, Lymph % (Auto) 5.1 L, [place] % (Auto) 4.1, Eos % (Auto) 0.0 L, Baso % (Auto) 0.2, Neut # (Auto) 17.2 H, Lymph # (Auto) 1.0, [place] # (Auto) 0.8, Eos # (Auto) 0.0, Baso # (Auto) 0.0, Total Counted 100, Neutrophils % (Manual) 89 H, Lymphocytes % (Manual) 8 L, Monocytes % (Manual) 3, Platelet Estimate Normal, RBC Morphology Normal I & O for Last 24 hours: Intake & Output 04/24/21 04/25/21 04/26/21 04/27/21 11:59 11:59 11:59 11:59 Intake Total 811 / 811 640 / 640 Output Total 600 / 600 Balance 211 / 211 640 / 640 Weight 190 lb 198 lb 5 oz 208 lb 1 oz Microbiology Reports for the Last 24 Hours: Microbiology 04/26/21 04:15 Urine,Clean Catch Urine Culture - Preliminary NO GROWTH AFTER 24 HOURS - Constitutional no acute distress - *Routine Respiratory Exam Present: CTA bilaterally - *Routine Cardiovascular Exam Present: RRR - *Routine Abdominal Exam Present: soft, normoactive bowel sounds, tenderness (diffuse), distended - *Routine Extremities Exam Absent: cyanosis, clubbing, edema - *Routine Skin Exam Present: warm. Absent: rash - *Routine Neurological Exam Present: alert, oriented X3 Assessment and Plan (1) Acute pancreatitis Status: Acute Qualifiers: Pancreatitis type: alcohol induced Acute pancreatitis complication: no infection or necrosis Qualified Code(s): K85.20 - Alcohol induced acute pancreatitis without necrosis or infection Category: Medical Code(s): K85.90 - Acute pancreatitis without necrosis or infection, unspecified (2) Nausea and vomiting Status: Acute Category: Medical Code(s): R11.2 - Nausea with vomiting, unspecified - Assessment and plan all Dx Assessment and Plan for all problems:: Amylase and lipase continue to improve but are still elevated. Will discuss further care with Dr. Sims.
[2021-04-27 13:19] VITALS: BMI 29.6
[2021-04-27 15:48] VITALS: BP 154/72; PULSE 101; RESP 18; TEMP 37.2; O2SAT 91
--- NOTE | 2021-04-27 18:44 | PC.NURSE ---
VSS THROUGHOUT SHIFT, PATIENT C/O EPIGASTRIC DISCOMFORT. DESRIBED IT GAS PAIN, REFLUX TYPE DISCOMFORT.
[2021-04-27 21:33] VITALS: BP 158/106; PULSE 105; RESP 18; TEMP 37.6; O2SAT 90
[2021-04-28 04:32] VITALS: BP 178/98; PULSE 95; RESP 16; TEMP 36.6
[2021-04-28 06:34] LABS: Chloride 105 mmol/L (98-107); Potassium 3.9 mmoL/L (3.5-5.1); Sodium 134 mmol/L (136-145)
[2021-04-28 06:37] LABS: Amylase 293 U/L (30-110); Anion Gap 7.9 mEq/L (5-15); Blood Urea Nitrogen 12 mg/dl (9-20); Carbon Dioxide 25 mmol/L (22.0-30.0); Creatinine Clearance Estimated 157 mL/min (50-200); Estimated Glomerular Filt Rate 98 ml/min (>60); GFR (African American) 118 ML/MIN (>60); Glucose 105 mg/dl (74-100)
[2021-04-28 06:53] LABS: Lipase 792 U/L (23-300)
[2021-04-28 08:00] VITALS: BP 160/70; PULSE 75; RESP 19; TEMP 36.8; O2SAT 99
--- NOTE | 2021-04-28 09:10 | HMH.ACPN2 ---
Internal Medicine - PN: Subj *Date: 04/28/21 *Time: 09:10 Interval history: Patient states he is feeling better today. He has been up moving around his room. He still has some abdominal pain and distention but it is better. He is tolerating his diet and denies any nausea or vomiting. Exam Vital signs and Labs for Last 24 Hours: Temp Pulse Resp BP Pulse Ox 98.3 F 75 19 160/70 H 99 04/28/21 08:00 04/28/21 08:00 04/28/21 08:00 04/28/21 08:00 04/28/21 08:00 Laboratory Results - last 24 hr 04/28/21 05:55: Sodium 134 L, Potassium 3.9, Chloride 105, Carbon Dioxide 25, Anion Gap 7.9, BUN 12, Creatinine 0.90, Estimated Creat Clear 157, Estimated GFR 98, Est GFR ( Amer) 118, Glucose 105 H, Calcium 8.0 L, Amylase 293 H, Lipase 792 H I & O for Last 24 hours: Intake & Output 04/25/21 04/26/21 04/27/21 04/28/21 11:59 11:59 11:59 11:59 Intake Total 811 / 811 640 / 640 1979 Output Total 600 / 600 Balance 211 / 211 640 / 640 1979 Weight 190 lb 198 lb 5 oz 208 lb 1 oz 207 lb 3.752 oz Microbiology Reports for the Last 24 Hours: Microbiology 04/26/21 04:15 Urine,Clean Catch Urine Culture - Final NO GROWTH AFTER 48 HOURS - Constitutional no acute distress - *Routine Respiratory Exam Present: CTA bilaterally - *Routine Cardiovascular Exam Present: RRR - *Routine Abdominal Exam Present: soft, normoactive bowel sounds, tenderness (diffuse but worse in the epigastric area), distended - *Routine Extremities Exam Absent: cyanosis, clubbing, edema - *Routine Skin Exam Present: warm. Absent: rash - *Routine Neurological Exam Present: alert, oriented X3 Assessment and Plan (1) Acute pancreatitis Status: Acute Qualifiers: Pancreatitis type: alcohol induced Acute pancreatitis complication: no infection or necrosis Qualified Code(s): K85.20 - Alcohol induced acute pancreatitis without necrosis or infection Category: Medical Code(s): K85.90 - Acute pancreatitis without necrosis or infection, unspecified (2) Nausea and vomiting Status: Acute Category: Medical Code(s): R11.2 - Nausea with vomiting, unspecified - Assessment and plan all Dx Assessment and Plan for all problems:: Amylase and lipase continue to improve. His pain is improving as well. Will discuss further care with Dr. Sims and may be able to advance his diet.
[2021-04-28 09:23] LABS: Basophils % 0.1 % (0.1-2.0); Eosinophils % 0.3 % (0.1-12.0); Hematocrit 35.2 % (42.0-52.0); Hemoglobin 12.5 g/dL (14.1-18.0); Lymphocytes # 1.3 K/mm3 (0.7-4.5); Lymphocytes % 9.4 % (10-50); Mean Corpuscular HGB Conc 35.4 g/dL (31.8-35.4); Mean Corpuscular Hemoglobin 32.1 pg (27.0-31.2); Mean Corpuscular Volume 90.7 fl (80-94); Mean Platelet Volume 9.7 fl (7.4-10.4); Monocytes # 0.8 K/mm3 (0.1-1.0); Monocytes % 5.7 % (1.7-9.3); Neutrophils # 11.5 K/mm3 (1.8-7.8); Neutrophils % 84.5 % (37.0-80.0); Platelet Count 165 K/mm3 (142-424); Red Blood Count 3.88 M/mm3 (4.60-6.20); Red Cell Distribution Width 13.7 % (11.5-17.5); White Blood Count 13.6 K/mm3 (4.8-10.8)
--- NOTE | 2021-04-28 15:06 | PC.NURSE ---
patient has done well this shift. independent. rings out as needed. tolerated lunch tray well. has had no complaints of pain requiring any pain medication. vitals stable.
[2021-04-28 15:26] VITALS: BP 155/80; PULSE 82; RESP 22; TEMP 37.2; O2SAT 95
[2021-04-28 19:37] VITALS: BP 152/85; PULSE 91; RESP 20; TEMP 38.1; O2SAT 92
--- NOTE | 2021-04-28 19:54 | PC.NURSE ---
Patient is resting in bed. C/o pain earlier in the shift, resolved with morphine. Patient is alert and oriented x 4. Room air. Is anxious to go home tomorrow.
[2021-04-29 04:00] VITALS: BP 166/98; PULSE 91; RESP 18; TEMP 37.2; O2SAT 94
[2021-04-29 06:00] VITALS: BMI 30.5
[2021-04-29 07:39] LABS: Basophils % 0.2 % (0.1-2.0); Eosinophils % 0.3 % (0.1-12.0); Hematocrit 35.4 % (42.0-52.0); Hemoglobin 12.1 g/dL (14.1-18.0); Lymphocytes # 1.4 K/mm3 (0.7-4.5); Lymphocytes % 12.2 % (10-50); Mean Corpuscular HGB Conc 34.3 g/dL (31.8-35.4); Mean Corpuscular Volume 90.6 fl (80-94); Mean Platelet Volume 9.3 fl (7.4-10.4); Monocytes # 0.8 K/mm3 (0.1-1.0); Monocytes % 6.6 % (1.7-9.3); Neutrophils # 9.5 K/mm3 (1.8-7.8); Neutrophils % 80.8 % (37.0-80.0); Platelet Count 168 K/mm3 (142-424); Red Cell Distribution Width 13.1 % (11.5-17.5); White Blood Count 11.7 K/mm3 (4.8-10.8)
[2021-04-29 07:48] VITALS: BP 161/92; PULSE 89; RESP 18; TEMP 36.9; O2SAT 94
[2021-04-29 07:58] LABS: Chloride 104 mmol/L (98-107); Sodium 135 mmol/L (136-145)
[2021-04-29 07:59] LABS: Potassium 3.7 mmoL/L (3.5-5.1)
[2021-04-29 08:01] LABS: Amylase 156 U/L (30-110); Blood Urea Nitrogen 11 mg/dl (9-20); Carbon Dioxide 24 mmol/L (22.0-30.0); Creatinine Clearance Estimated 182 mL/min (50-200); Estimated Glomerular Filt Rate 112 ml/min (>60); GFR (African American) 136 ML/MIN (>60); Lipase 445 U/L (23-300)
[2021-04-29 08:02] LABS: Calcium 8.1 mg/dl (8.4-10.2); Glucose 98 mg/dl (74-100)
--- NOTE | 2021-04-29 08:47 | P.PN_ITS ---
Internal Medicine - PN: Subj *Date: 04/29/21 *Time: 08:47 Interval history: Patient is feeling well this morning. He has tolerated his advance diet and has no abdominal pain. He wants to go home today. Exam Vital signs and Labs for Last 24 Hours: Temp Pulse Resp BP Pulse Ox 98.5 F 89 18 161/92 H 94 L 04/29/21 07:48 04/29/21 07:48 04/29/21 07:48 04/29/21 07:48 04/29/21 07:48 Laboratory Results - last 24 hr 04/28/21 05:55: WBC 13.6 H D, RBC 3.88 L, Hgb 12.5 L, Hct 35.2 L, MCV 90.7, MCH 32.1 H, MCHC 35.4, RDW 13.7, Plt Count 165, MPV 9.7, Neut % (Auto) 84.5 H, Lymph % (Auto) 9.4 L, [place] % (Auto) 5.7, Eos % (Auto) 0.3, Baso % (Auto) 0.1, Neut # (Auto) 11.5 H, Lymph # (Auto) 1.3, [place] # (Auto) 0.8, Eos # (Auto) 0.0, Baso # (Auto) 0.0 04/29/21 07:31: WBC 11.7 H, RBC 3.90 L, Hgb 12.1 L, Hct 35.4 L, MCV 90.6, MCH 31.0, MCHC 34.3, RDW 13.1, Plt Count 168, MPV 9.3, Neut % (Auto) 80.8 H, Lymph % (Auto) 12.2, [place] % (Auto) 6.6, Eos % (Auto) 0.3, Baso % (Auto) 0.2, Neut # (Auto) 9.5 H, Lymph # (Auto) 1.4, [place] # (Auto) 0.8, Eos # (Auto) 0.0, Baso # (Auto) 0.0 04/29/21 07:31: Sodium 135 L, Potassium 3.7, Chloride 104, Carbon Dioxide 24, BUN 11, Creatinine 0.80, Estimated Creat Clear 182, Estimated GFR 112, Est GFR ( Amer) 136, Glucose 98, Calcium 8.1 L, Amylase 156 H, Lipase 445 H I & O for Last 24 hours: Intake & Output 04/26/21 04/27/21 04/28/21 04/29/21 11:59 11:59 11:59 11:59 Intake Total 811 / 811 640 / 640 1979 2400 / 2400 Output Total 600 / 600 Balance 211 / 211 640 / 640 1979 2400 / 2400 Weight 198 lb 5 oz 208 lb 1 oz 207 lb 3.752 oz 213 lb 8 oz Microbiology Reports for the Last 24 Hours: Microbiology 04/26/21 04:15 Urine,Clean Catch Urine Culture - Final NO GROWTH AFTER 48 HOURS - Constitutional no acute distress - *Routine Respiratory Exam Present: CTA bilaterally - *Routine Cardiovascular Exam Present: RRR - *Routine Abdominal Exam Present: soft, normoactive bowel sounds. Absent: tenderness - *Routine Extremities Exam Absent: cyanosis (Pain), clubbing, edema - *Routine Skin Exam Present: warm. Absent: rash - *Routine Neurological Exam Present: alert, oriented X3 Assessment and Plan (1) Acute pancreatitis Status: Acute Qualifiers: Pancreatitis type: alcohol induced Acute pancreatitis complication: no infection or necrosis Qualified Code(s): K85.20 - Alcohol induced acute pancreatitis without necrosis or infection Category: Medical Code(s): K85.90 - Acute pancreatitis without necrosis or infection, unspecified (2) Nausea and vomiting Status: Acute Category: Medical Code(s): R11.2 - Nausea with vomiting, unspecified - Assessment and plan all Dx Assessment and Plan for all problems:: Patient is stable to be discharged today.
--- NOTE | 2021-04-30 21:38 | [facility].DCSUM ---
General - General Admission date:: 04/25/21 Discharge date: 04/29/21 HPI HPI: Mr. Allred is a 30-year-old male patient with a history of previous pancreatitis who presented to the emergency room with acute abdominal pain radiating into the back associated with nausea and frequent vomiting. He states he went out for dinner last night and did have a couple drinks which he feels precipitated this episode. He had a similar episode about 6 months ago with pancreatitis hospitalization. Denies hematemesis or stool issues. Patient does not have a family physician 04/25/21 10:09: WBC 15.5 H, RBC 4.86, Hgb 15.2, Hct 44.1, MCV 90.7, MCH 31.2, MCHC 34.4, RDW 13.7, Plt Count 301, MPV 7.7, Neut % (Auto) 84.3 H, Lymph % (Auto) 10.9, [place] % (Auto) 4.2, Eos % (Auto) 0.3, Baso % (Auto) 0.3, Neut # (Auto) 13.1 H, Lymph # (Auto) 1.7, [place] # (Auto) 0.7, Eos # (Auto) 0.1, Baso # (Auto) 0.0, Total Counted 100, Neutrophils % (Manual) 81 H, Lymphocytes % (Manual) 13, Monocytes % (Manual) 6, Platelet Estimate Normal 04/25/21 10:09: Sodium 143, Potassium 4.4, Chloride 107, Carbon Dioxide 28, Anion Gap 12.4, BUN 10, Creatinine 1.00, Estimated Creat Clear 129, Estimated GFR 87, Est GFR ( Amer) 105, Glucose 114 H, Calcium 9.3, Total Bilirubin 0.8, AST 39, ALT 38, Alkaline Phosphatase 74, Total Protein 7.8, Albumin 4.8, Globulin 3.0, Albumin/Globulin Ratio 1.6, Lipase [address] of Abdomen/pelvis revealed the following: IMPRESSION: Findings are compatible with acute pancreatitis with a small amount of fluid in the anterior pararenal fascia is. No definite pancreatic necrosis apparent. Low-density changes along the lateral aspect of the pancreatic head as described above for which follow-up is suggested. Emergency room revealed that he was afebrile and hypertensive. He received a liter of IV fluids was given Toradol, morphine, Zofran, Phenergan IV. He does appear uncomfortable. Hospital Course Hospital Course: The patient's abdominal pelvic CT showed acute pancreatitis. He was kept n.p.o. and was started on nausea and pain management. His morphine had to be increased to 8 mg every 3 hours due to continued pain. By 04/26/2021 he was more comfortable. He was no longer nauseated and wanted to try some clear liquids. His abdomen was sore, but he denied any vomiting and was able to tolerate the clear liquids. He began sleeping better. His amylase and lipase decreased and he was able to be advanced to a low-fat diet. He was able to get up and move around his room. By 04/29/2021, he felt much better. His abdominal pain had resolved and he wanted to go home. His blood pressure was elevated, therefore he was stable to be discharged with the addition of lisinopril. Objective Vital signs: Temp Pulse Resp BP Pulse Ox 98.5 F 89 18 161/92 H 94 L 04/29/21 07:48 04/29/21 07:48 04/29/21 07:48 04/29/21 07:48 04/29/21 07:48 Narrative: - Constitutional no acute distress Comments: awakened for Assessment. Patient is lying in the position on his left side. He acts uncomfortable when awake. - *Routine HEENT Exam Head: Present: normocephalic, atraumatic Eye: Present: PERRL. Absent: conjunctival icterus, scleral injection ENT: Present: mucous membranes moist, oropharynx clear - *Routine Neck Exam Present: supple. Absent: carotid bruit, lymphadenopathy, thyromegaly - *Routine Respiratory Exam Present: CTA bilaterally (A&P) - *Routine Cardiovascular Exam Present: RRR (70/min) - *Routine Abdominal Exam Present: soft, normoactive bowel sounds, tenderness (diffuse) - *Routine Rectal Exam Rectal:: deferred - *Routine Genitalia Exam Genitalia:: deferred - *Routine Extremities Exam Present: pulses intact. Absent: edema, calf tenderness - *Routine Neurological Exam Present: alert, oriented X3 DS: Diagnosis - Discharge Diagnosis (1) Acute pancreatitis Status: Acute (2) Nausea and vomiting Status: Acute
== END 2021-04-29 09:45 | disposition home or self-care (01) | DRG 440 ==
LOC: ER 12:57 → 2ND 13:18
PROVIDERS: Nurse Practitioner Family; Admitting Provider Family Medicine; Emergency Provider Emergency Medicine; Visit Provider Family Medicine
DX: K85.20 Alcohol induced acute pancreatitis without necrosis or infection (principal); Z20.822 Contact with and (suspected) exposure to COVID-19; I10 Essential (primary) hypertension
CPT/HCPCS: 36415; 74177; 80048; 80053; 80061; 81001; 82150; 83690; 85007; 85025; 87086; 96365; 96367; 96375; 99203; G0463; J2405; Q9967; U0003